=== PATIENT | female | born 1980 | race Caucasian/White ===

== ENCOUNTER 2025-08-12 01:09 | Emergency (ER) | payer MEDICAID ==
[~2025-08-12] VITALS: Ht 177.8 cm; Wt 100.0 kg
--- NOTE | 2025-08-12 01:53 | Physician Documentation ---
History of Present Illness ~ Chief Complaint: Rash Stated Complaint: RASH Time Seen by MD: 01:52 HPI Patient presents to the emergency room with rash distribution of her armpits beneath her breasts and in her inguinal area. That has not there this morning. She has not changed any beauty products or detergents. She does not itch. That has not painful. No shortness of breath Medication Reconciliation Allergies: Coded Allergies: codeine (Verified Allergy, Unknown, 08/12/25) Review of Systems ROS All review of systems negative except as per HPI Physical Exam Vital Signs: Temperature: 96.3, Source: Temporal, Heart Rate: 98, Respiratory Rate: 15, BP: 153/82, Pulse Oximetry: 99, Weight: 100.000 Physical Exam General: Patient is awake, alert, oriented x4 in no acute distress and well appearing.~ Head: Normocephalic and atraumatic. Eyes: Conjunctival normal. EOMI. PERRL. ENT: Mucous membranes moist. Neck: Supple, trachea is midline. Chest: Clear to auscultation bilaterally without rales, rhonchi, or wheezes. There is no accessory muscle use or retractions. Cardiac: RRR without murmurs, gallops, or rubs. Skin: Blanching rash in distribution of her inguinal area beneath breasts and armpits. No rash on buttock or posterior bra strap area. Progress Results/Orders Results/Orders Vital Signs 08/12/25 01:20 Temp 96.3 Pulse 98 Resp 15 B/P (MAP) 153/82 Pulse Ox 99 Medical Decision Making Additional information obtaine: N/A Findings Patient presents to the emergency room with rash as per HPI. Differentials include but are not limited to fungal infection, viral syndrome, contact dermatitis, vasculitis. Rashes blanching in nature and I do not feel patient requires labs for investigation into vasculitis. Given patient's specific distribution of rash I believe this is a rash caused by contact dermatitis. After discussing various exposures I feel that has highly likely she has developed a sensitivity to her deodorant as this is the exact places she places her deodorant. She has been advised to stop her deodorant and we will prescribe a steroid cream. Given the acute onset nature of the rash and he had not believe that has fungal in nature. No itching and he had not believe this is result of poison oak. Given distribution he had not feel that this is a viral exanthem Differential Dx:Considerations: Include: Abscess, AIDS/HIV, Anthrax (cutaneous), Atopic dermatitis, Candidiasis, Contact dermatitis, Drug reaction, Erythema multiforme, Erysipelas, Gangrene, Herpes zoster, Herpes simplex, Hidradenitis suppurativa, Impetigo, Intertrigo, Lymes disease, Molluscum contagiosum, Osteomyelitis, Pediculosis, Pityriasis rosea, Psoriaisis, RMSF, Rosacea, Scabies, Scarlet fever, Tinea, Urticaria, Varicella, Viral exanthema, Other Departure Disposition: HOME / SELF CARE / HOMELESS Impression: Primary Impression: Allergic contact dermatitis Condition: Stable Discharge Instructions: Contact Dermatitis Additional Instructions: Stop your deodorant or any other products that you may apply to the distribution of your rash. That has should resolve in time however we will provide a steroid cream to eight and resolution. Do not place steroid on your genitals. Referrals: NO PRIMARY CARE PROVIDER (PCP) Prescriptions Hydrocortisone (hydrocortisone 1% cream) 1 % Cream..g. 1 APPLIC TOP Q12H for 5 Days, #15 GM 0 Refills apply to affected area(s) Prov: ENOC BRAVO MD 08/12/25 Signature Scribe Signature: No scribe Attestation: The note accurately reflects work and decisions made by me.Enoc Bravo MD 08/12/25 02:20 ENOC BRAVO MD Aug 12, 2025 01:53
[2025-08-12] MEDS ORDERED: HYDR28CR14 TOP (02:19)
[2025-08-12] MEDS: hydrocortisone 1% cream 28gm TP SCH (02:39)
[2025-08-12 02:40] VITALS: BP 153/82; PULSE 98; RESP 15; TEMP 96.3; O2SAT 98
[2025-08-12] MEDS ORDERED: hydrocortisone 1% cream 28gm TP SCH (08:00)
== END 2025-08-12 02:43 | disposition home or self-care (01) ==
LOC: ER 01:10
DX: L23.9 Allergic contact dermatitis, unspecified cause (principal); Z88.5 Allergy status to narcotic agent
CPT/HCPCS: 99283